=== PATIENT | female | born 1995 ===

== ENCOUNTER 2020-11-04 21:36 | Outpatient (CLI) | payer MEDICAID ==
[~2020-11-04] VITALS: Ht 180.3 cm; Wt 110.5 kg
[~2020-11-04 21:36] MED LIST: PERCOCET 325 MG1 TA2 PO; TYLENOL 325MG325 MG PO
--- NOTE | 2020-11-04 21:45 | NUR ---
Pt arrived on unit ambulatory, escorted by and with complaints of increased discharge and some bleeding. Pt denies any contractions and reports normal movement. Pt also reports sexual intercourse last night. EFM and toco monitors started. Vital signs WNL. SVE by this RN closed/thick/high with no blood noted on external exam or on exam glove. Amnio-trace negative.
[2020-11-04] MEDS ORDERED: PRENATAL (22:12)
[2020-11-04] MEDS ORDERED: CELEXA40 MG PO (22:12)
[2020-11-04 22:46] VITALS: BP 132/74; PULSE 99; TEMP 98.5
--- NOTE | 2020-11-04 23:00 | NUR ---
Discharge instructions reviewed with pt and at the bedside. Both verbalized an understanding, agreed with the plan and states no questions or concerns.
== END 2020-11-04 23:05 | disposition home or self-care (01) ==
LOC: LDRO 21:36 → LDR 22:13 → LDRO 23:05
DX: O26.853 Spotting complicating pregnancy, third trimester (principal); Z3A.29 29 weeks gestation of pregnancy
CPT/HCPCS: OP

== ENCOUNTER 2021-01-01 17:14 | Outpatient (CLI) | payer MEDICAID ==
[~2021-01-01] VITALS: Ht 180.3 cm; Wt 110.5 kg
[~2021-01-01 17:14] MED LIST changes: +CELEXA40 MG PO; +PRENATAL
--- NOTE | 2021-01-01 17:20 | NUR ---
1720- Pt arrives on unit ambulatory with FOB. Changes into gown. 172- Pt into bed, while palpating abd for place monitors, movement felt by this RN and PT. EFM and TOCO on and tracing. O2 sat monitor on and tracing. VSS. Assessment completed. SVE by this RN, amniotrace negative. Pt complains of cramping and lower back pain, and not feeling baby move since last night. Discussed kick counts and increasing water intake. Ice water provided to Pt.
[2021-01-01 17:45] VITALS: BP 137/85; PULSE 111; TEMP 99
[2021-01-01 18:00] VITALS: BP 125/75; PULSE 96
--- NOTE | 2021-01-01 18:10 | NUR ---
1800- Plan of care discussed with Pt to discharge home. EFM and TOCO off. Pt up to change into street clothes. 1810- Discharge paperwork given and explained, labor precautions given. Pt denies questions at this time.
== END 2021-01-01 18:10 | disposition home or self-care (01) ==
LOC: LDRO 17:14
DX: O36.8130 Decreased fetal movements, third trimester, not applicable or unspecified (principal); Z3A.37 37 weeks gestation of pregnancy

== ENCOUNTER 2021-01-14 03:16 | Inpatient (IN) | payer MEDICAID ==
[~2021-01-14] VITALS: Ht 177.8 cm; Wt 110.9 kg
[2021-01-14] VITALS (31 sets, daily range): BP systolic 134–178; BP diastolic 65–102; PULSE 71–107; TEMP 97.7–98.4
[~2021-01-14 03:16] MED LIST changes: -IBU600 MG PO; -ZYRTEC 10MG10 MG PO
--- NOTE | 2021-01-14 03:30 | NUR ---
G4L1 at 39 weeks and 5 days arrives to unit with complaint of contractions every 5 minutes. Pt visibly uncomfortable. Pt reports feeling good movement, denies LOF, reports light vaginal bleeding. Pt denies headaches, blurry vision, or RUQ pain. Clean gown on. Pt oriented to room, call light within reach, bed in low and locked position. US and toco explained and applied. Admission assessment started. Vital signs obtained. SVE 5/90/-2, membranes intact, vertex position Dr. Nunez on unit, notified.
--- NOTE | 2021-01-14 04:00 | NUR ---
18G IV started in left hand with 1 attempt. Admission labs obtained off IV start. Lactated ringers bolus infusing. Consents reviewed and signed with patient. Mike Keith CRNA on unit and updated that patient would like epidural now.
[2021-01-14 04:12] LABS: BASO % 0.4 % (0.0-2.0); EOS # 0.1 (0.0-0.7); EOS % 1.2 % (0-4.0); HEMOGLOBIN 10.5 g/dl (12.5-16.0); LYMPH # 1.6 (1.2-3.4); LYMPH % 22.4 % (20.0-51.0); MEAN CELL VOLUME 82 fl (80.0-100.0); MEAN CORPUSCULAR HEMOGLOBIN 26 pg (27.0-31.0); MEAN CORPUSCULAR HGB CONC 31 g/dl (33.0-37.0); MEAN PLATELET VOLUME 11.5 fl (7.4-10.4); MONO # 0.5 (0.1-0.6); MONO % 6.7 % (1.7-9.3); PLATELET COUNT 137 K/mm3 (130-400); RED BLOOD COUNT 4.11 M/mm3 (4.10-5.30); REDCELL DISTRIBUTION WIDTH-CV 14.4 % (11.5-14.5)
[2021-01-14 04:13] LABS: HEMATOCRIT 33.5 % (37.0-47.0)
--- NOTE | 2021-01-14 04:25 | NUR ---
0415 - Mike Keith CRNA at bedside. Pt positioned to sitting on edge of bed. Epidural procedure, risks, and benefits reviewed. pt verbalized understanding. 0420 - Difficulty tracing FHR due to maternal body habitus and maternal positioning. 0425 - Test dose by ЕЛЕНА Grigsby. Pt denies any adverse reactions. 0430 - Pt positioned to left lateral. Safety precautions reviewed. Bed in low and locked position, call light within reach. See anesthesia record.
[2021-01-14] MEDS ORDERED: ZYRTEC 10MG10 MG PO (04:54)
--- NOTE | 2021-01-14 08:40 | NUR ---
SVE per this RN C/+2. Dr. Lewis on unit. Pt prepped for delivery. 0855- of viable attended by provider. Cord clamped x 2 and cut from umbilicus. Infant dried and placed on mother's abdomen. Care of to Julio Jackson RN. 0900- of placenta. Fundus firm at umbilicus. Bleeding WNL. Pitocin bolus infusing per protocol. Pericare performed. Ice pack applied. Pt updated on POC. Bed locked in low position. Call light within reach.
[2021-01-15 00:30] VITALS: BP 149/87; PULSE 88; TEMP 97.5
[2021-01-15 04:50] VITALS: BP 113/72; PULSE 94; TEMP 97.8
[2021-01-15 08:47] LABS: HEMOGLOBIN 11.3 g/dl (12.5-16.0)
[2021-01-15 08:51] LABS: HEMATOCRIT 35.4 % (37.0-47.0)
[2021-01-15] MEDS ORDERED: IBU600 MG PO (08:51)
[2021-01-15 09:30] VITALS: BP 141/89; PULSE 93; TEMP 97.8
--- NOTE | 2021-01-15 12:44 | NUR ---
Real Estate Assistant offered congrats to patient and spouse in room before they were discharged.
== END 2021-01-15 12:00 | disposition home or self-care (01) | DRG 768 ==
LOC: LDRO 03:16 → LDR 03:49 → OB 12:00
PROVIDERS: Obstetrics & Gynecology; ADMIT Obstetrics & Gynecology
PROC: 10E0XZZ Delivery of Products of Conception, External Approach (ICD-10-PCS; principal; 2021-01-14)
PROC: 0UQJXZZ Repair Clitoris, External Approach (ICD-10-PCS; 2021-01-14)
PROC: 10907ZC Drainage of Amniotic Fluid, Therapeutic from Products of Conception, Via Natural or Artificial Opening (ICD-10-PCS; 2021-01-14)
PROC: 0UQGXZZ Repair Vagina, External Approach (ICD-10-PCS; 2021-01-14)
PROC: 0UQMXZZ Repair Vulva, External Approach (ICD-10-PCS; 2021-01-14)
DX: O99.344 Other mental disorders complicating childbirth (principal); Z37.0 Single live birth; O71.4 Obstetric high vaginal laceration alone; F41.9 Anxiety disorder, unspecified; F32.9 Major depressive disorder, single episode, unspecified; F90.9 Attention-deficit hyperactivity disorder, unspecified type; O77.0 Labor and delivery complicated by meconium in amniotic fluid; O71.82 Other specified trauma to perineum and vulva; Z3A.39 39 weeks gestation of pregnancy
CPT/HCPCS: J2405; J2590; J7120

== ENCOUNTER → 2021-01-14 | Outpatient (CLI) | payer MEDICAID ==
[~2021-01-14] MED LIST changes: +IBU600 MG PO; +ZYRTEC 10MG10 MG PO
== END ==
LOC: ZCOL.LAB 01-11 14:24
DX: Z20.822 Contact with and (suspected) exposure to COVID-19 (principal)